=== PATIENT | male | born 1965 | race Caucasian/White ===

== ENCOUNTER 2016-04-18 14:07 | Inpatient (IN) | payer MEDICARE ==
[2016-04-18] MEDS ORDERED: IOPAMIDOL 300 (61%) 150 ML VIAL IV ONE (14:08)
[2016-04-18 14:47] LABS: URINE BILIRUBIN 2+ (NEGATIVE); URINE BLOOD NEGATIVE (NEGATIVE); URINE GLUCOSE (UA) NEGATIVE (NEGATIVE); URINE LEUKOCYTE ESTERASE TRACE (NEGATIVE); URINE PROTEIN 1+ (NEGATIVE); URINE UROBILINOGEN 12 mg/dL (0-1 mg/dl)
[2016-04-18 14:53] LABS: URINE APPEARANCE HAZY; URINE COLOR BROWN
[2016-04-18 15:01] LABS: URINE BACTERIA FEW; URINE EPITHELIAL CELLS 0-2 /hpf; URINE MUCUS 3+; URINE RBC 0 /hpf; URINE WBC 0-1 /hpf
[2016-04-18 15:03] LABS: URINE NITRITE POSITIVE (NEGATIVE)
[2016-04-18] MEDS ORDERED: SODIUM CHLORIDE 0.9% 1,000 ML ONE ×2 (17:58→22:20)
[2016-04-18] MEDS ORDERED: ONDANSETRON 4 MG/2ML 2 ML VIAL ONE (17:58)
[2016-04-18] MEDS ORDERED: KETOROLAC TROMETHAMINE 30 MG/ML 1 ML VIAL ONE (17:59)
[2016-04-18 18:26] LABS: ABSOLUTE NEUTROPHIL COUNT 7.2 K/mm3 (1.8-7.7); BASO # 0.1 K/mm3 (0.0-0.2); BASO % 0.5 % (0.2-1.0); EOS # 0.1 (0.0-0.5); EOS % 1.2 % (0.9-2.9); HEMATOCRIT 47.2 % (32.0-52.0); HEMOGLOBIN 16.3 gm/l (14.0-18.0); IMM NEUT # 0.2 K/mm3 (0-0.2); IMM NEUT% 1.6 % (0-1); LYMPH # 1.4 (1.0-4.8); MEAN CELL VOLUME 97.1 fl (80.0-94.0); MEAN CORPUSCULAR HEMOGLOBIN 33.5 pg (27.0-31.0); MEAN CORPUSCULAR HGB CONC 34.5 g/dl (33.0-37.0); MEAN PLATELET VOLUME 9.7 fl (7.4-10.4); MONO % 18.4 % (4-12); NEUT % 65.3 % (43-75); PLATELET COUNT 138 K/mm3 (130-400); RED CELL DISTRIBUTION WIDTH 12.8 % (11.5-14.5)
[2016-04-18 18:34] LABS: ALB/GLOB RATIO 0.9 (>1.0); ALBUMIN 3.4 gm/dL (3.5-5.7); ALT/SGPT 65 U/L (7-52); BLOOD UREA NITROGEN 12 mg/dL (7-25); BUN/CREATININE RATIO 17 (6-20); CALCIUM 8.7 mg/dL (8.6-10.3); GLOMERULAR FILTRATION RATE 119 mL/min (60-93); LIPASE 50 U/L (11-82)
--- NOTE | 2016-04-18 19:34 | CT ---
Exam Type: ABD/PELVIS W/ CON Date and Time: 04/18/2016 6:09 PM Clinical information: Right-sided abdominal pain. Comparison: Abdomen ultrasound dated 04/12/2016. Procedure: Imaging device: [employer] Aquilion [address] scanner 1 mm axial images were obtained through the abdomen and pelvis. Stacked reconstructed 3, 4 and 5 mm images were photographed in the axial coronal and sagittal planes. No oral contrast was utilized for this examination. 125 ml of Isovue-300 was injected intravenously. Exam: with intravenous contrast. FINDINGS: Lung bases: Scans through the lung bases demonstrate linear bibasilar atelectasis or scarring. Liver: The liver appears to be somewhat heterogeneous with the suggestion of numerous low-attenuation foci. A focal mass is not visualized. This may reflect a process such as hepatitis or underlying cirrhosis though a diffuse infiltrating process cannot be excluded. Spleen: Spleen is enlarged with the suggestion of perisplenic and periesophageal varices. Gallbladder: The gallbladder is moderately distended. There appears to be adjacent inflammatory stranding and thickening of the gallbladder wall though this was not identified on the prior ultrasound. On image 36, there is a calcific focus which appears to project at the gallbladder neck which may reflect a small calcified gallstone. Pancreas: Normal without enlargement or evidence of adjacent inflammatory changes. Adrenal glands: Normal without enlargement or evidence of adjacent inflammatory changes. Abdominal aorta: The aorta is of normal caliber and appears to be without significant atherosclerotic disease. Kidneys: There is a small low-attenuation focus within the left kidney appearing to reflect a small cyst. No evidence of hydronephrosis is visualized. Bowel structures: Extensive colonic diverticulosis is present. The hepatic flexure extends adjacent to the gallbladder in the region of inflammatory stranding, though this appears to be centered at the gallbladder, and not the colon. Mild likely secondary thickening of the colonic wall is seen within this region. There is no evidence of obstruction visualized. Appendix: The appendix is well-visualized and appears to be of normal caliber. No periappendiceal inflammatory changes or CT findings of appendicitis are currently observed. Bladder: The bladder is of normal contour. No wall thickening or significant distention is observed. Hernia: A fat filled left inguinal hernia is visualized. There is also a small suggested ventral hernia eccentric to the right above the level of the umbilicus. Adenopathy: No significant enlarged adenopathy is visualized. Osseous structures: There is a deformity of the right iliac wing which may be the site of prior bone graft harvest or a traumatic deformity. Pelvic structures: There is prominence of the venous vascular structures within the deep pelvis and including along the margin of the rectum, best seen on axial image #112. IMPRESSION: 1. Distention of the gallbladder with suggested wall thickening and inflammatory stranding within the mesentery of the right upper quadrant, appearing to be centered at the gallbladder. Though no gallstones were evident on prior ultrasound exam, there is a small calcific focus seen posteriorly within the gallbladder neck which may reflect a small calcified gallstone. The possibility of acute or chronic cholecystitis is raised. 2. Splenomegaly with perisplenic and periesophageal varices. 3. A heterogeneous appearance of the liver with numerous very small suggested low-attenuation foci which may reflect an underlying inflammatory or infectious process such as hepatitis or cirrhosis. A diffuse infiltrative process cannot be excluded however. 4. Diffuse colonic diverticulosis with focal thickening of the hepatic flexure likely secondary colitis due to the inflammatory process within the right upper quadrant adjacent to the gallbladder. 5. A small amount of pelvic free fluid. 6. A traumatic or postsurgical deformity of the right iliac wing. 7. A small right eccentric anterior abdominal wall ventral hernia located cephalad to the umbilicus. 8. A probable small left renal cyst. 9. A small fat filled left inguinal hernia. 10. Prominent deep pelvic vasculature including along the right lateral wall of the rectum.
[2016-04-18] MEDS ORDERED: MORPHINE SULFATE 4 MG/ML SYRINGE ONE (20:11)
[2016-04-18] MEDS ORDERED: PIPERACILLIN-TAZO PREMIX BAG 50 ML IV ONE (20:11)
[2016-04-18] MEDS ORDERED: TETANUS,DIPHTHERIA TOXOID SYRINGE IM V ONE (20:11)
[2016-04-18] MEDS ORDERED: ONDANSETRON 4 MG/2ML 2 ML VIAL IV PRN (20:39)
[2016-04-18] MEDS ORDERED: DIPHENHYDRAMINE HCL 50 MG/1 ML VIAL IV PRN (20:39)
[2016-04-18 21:13] LABS: BAND 15 % (0-10); NEUTROPHILS 58 % (43-75); TOTAL CELLS COUNTED 100
[2016-04-18 21:14] LABS: BASOPHIL 0 % (0-1); EOSINOPHIL 2 % (1-3); LYMPHOCYTE 15 % (15-45); MONOCYTE 10 % (4-12)
[2016-04-18 21:18] LABS: PLATELET ESTIMATE NORMAL (NORMAL)
[2016-04-18] MEDS ORDERED: PUMP TUBING ONE (22:20)
[2016-04-18] MEDS ORDERED: CALCIUM CARBONATE 500 MG TAB.CHEW PO ONE (22:49)
[2016-04-19 00:17] VITALS: BMI 30.6
[2016-04-19] MEDS: SODIUM CHLORIDE 0.9% 1,000 ML IV SCH ×2 (02:34→06:40)
[2016-04-19] MEDS: PIPERACILLIN-TAZO PREMIX BAG 3.375 G in Premix (D5W) 50 ml 1 EACH IV SCH ×4 (02:35→19:48)
[2016-04-19] MEDS: MORPHINE SULFATE 2 MG/ML SYRINGE IV PRN ×8 (02:42→22:47)
--- NOTE | 2016-04-19 06:08 | HP ---
MOJGAN RAMIREZO DATE OF ADMISSION: April 18, 2016 CHIEF COMPLAINT: Right upper quadrant pain. HISTORY OF PRESENT ILLNESS: Mr. Solares is a 51-year-old man who began having epigastric and right upper quadrant pain on Berta Mary, six days ago. Since then he has had pain basically on a daily basis. He was initially seen in the emergency room here on April 12, 2016 and an ultrasound was done, but this did not demonstrate stones or any stigmata of acute cholecystitis. He was sent home and since then has barely been able to eat. When he does eat, pain gets a little bit worse. Mild nausea but no vomiting. No history of gallstones before now. No history of pancreatitis or jaundice. Because the pain persisted, he presented again to the emergency department today and this time a CT scan was done which showed evidence of acute cholecystitis and the gallstone. General surgery was consulted. PAST MEDICAL HISTORY: Prior traumatic brain injury and a variety of orthopedic injuries from that. PAST SURGICAL HISTORY: 1. Umbilical hernia repair with mesh done in [place]. 2. Femur surgery with subsequent mian removal. 3. No other abdominal surgery. MEDICATIONS: None. ALLERGIES TO MEDICATIONS: NONE. SOCIAL HISTORY: Frequent alcohol use basically on a daily basis. No tobacco. FAMILY HISTORY: Is noncontributory. REVIEW OF SYSTEMS: The ten-point review of systems is noncontributory. He has not had any variceal bleeding and is unaware of any liver disease that he might have. PHYSICAL EXAM: VITAL SIGNS: Temperature 97.9, heart rate 84, blood pressure 133/87, respiratory rate 14. HEENT: No icterus. NECK: No masses. HEART: Regular. LUNGS: Clear. ABDOMEN: Mildly tender in the right upper quadrant. EXTREMITIES: Unremarkable. NEUROLOGIC: Appears to be nonfocal. It is unclear if he has some cognitive deficits from his head injury. GENITOURINARY: Exam is deferred. RECTAL: Exam is deferred. LABORATORIES: WBC is 11, hematocrit 47, platelets 138. Ethanol was negative. Lipase 50, amylase 22. Electrolytes were remarkable only for a sodium of 132. Liver function studies showed a total bilirubin 3.4, AST 123, ALT 65, alkaline phosphatase 149. DIAGNOSTIC IMAGING: CT scan of the abdomen and pelvis shows gallbladder wall thickening with a small calcified gallstone. There is a small ventral hernia just superior to the prior umbilical hernia. There are varices. ASSESSMENT: Acute cholecystitis and elevated total bilirubin. PLAN: Mr. Solares will be admitted to the hospital. He can have a clear liquid diet tonight but nothing by mouth after midnight for possible surgery tomorrow. He has already been started on Zosyn, intravenous fluids, and pain control. Dr. Garcia takes back over in the morning and will assume ongoing care. This would presumably involve cholecystectomy. I told him about the general nature of his condition and the need for cholecystectomy. It would be somewhat more difficult secondary to the acute nature of his gallbladder disease, varices, possible cirrhosis, and the ventral hernia. This may alter the approach. He understands that there is a risk of conversion to open procedure. The varices and possible cirrhosis raise the possibility that the total bilirubin, which was 3.1 a week ago and is now 3.4, might be not entirely due to choledocholithiasis. Although, this is certainly a possibility. As this is not an urgent, [id number] case, I will leave the timing up to Dr. Garcia. Repeat labs and a preoperative electrocardiogram have been ordered for in the morning.
[2016-04-19 06:14] LABS: HEMATOCRIT 43.1 % (32.0-52.0); HEMOGLOBIN 15.2 gm/l (14.0-18.0); MEAN CELL VOLUME 96.2 fl (80.0-94.0); MEAN CORPUSCULAR HEMOGLOBIN 33.9 pg (27.0-31.0); MEAN CORPUSCULAR HGB CONC 35.3 g/dl (33.0-37.0); RED CELL DISTRIBUTION WIDTH 12.7 % (11.5-14.5)
[2016-04-19 06:27] LABS: INR 1.5; PROTHROMBIN TIME 16.1 SECONDS (9.3-11.4)
[2016-04-19 06:49] LABS: ALB/GLOB RATIO 0.8 (>1.0); ALBUMIN 2.8 gm/dL (3.5-5.7); CALCIUM 7.9 mg/dL (8.6-10.3)
[2016-04-19] MEDS ORDERED: MIDAZOLAM HCL 5 MG/5 ML VIAL ONE (11:29)
[2016-04-19] MEDS ORDERED: SUCCINYLCHOLINE CHL 20 MG/ML DOSE ONE (11:29)
[2016-04-19] MEDS ORDERED: FENTANYL 5 ML ONE ×2 (11:29→13:01)
[2016-04-19] MEDS ORDERED: PROPOFOL 20 ML IV ONE ×2 (11:29→12:56)
[2016-04-19] MEDS ORDERED: ONDANSETRON 4 MG/2ML 2 ML VIAL ONE (11:29)
[2016-04-19] MEDS ORDERED: LIDOCAINE 2% (MULTI DOSE) 10 ML VIAL ONE (11:29)
[2016-04-19] MEDS ORDERED: CEFOTAXIME SODIUM 1,000 MG VIAL ONE (12:00)
[2016-04-19] MEDS ORDERED: IOPAMIDOL 300 (61%) 30 ML SDV ONE (12:01)
[2016-04-19] MEDS ORDERED: SODIUM CHLORIDE 0.9% FLUSH 0 ML ONE ×2 (12:01→17:55)
[2016-04-19] MEDS ORDERED: BUPIVACAINE 0.5% W/EPI SDV 30 ML VIAL ONE (12:01)
[2016-04-19] MEDS ORDERED: SODIUM CHLORIDE 0.9% 50 ML ONE (12:11)
[2016-04-19] MEDS ORDERED: ONDANSETRON 4 MG/2ML 2 ML VIAL IV PRN ×2 (13:09→15:48)
[2016-04-19] MEDS ORDERED: HYDROMORPHONE HCL 1 MG/ML SYRINGE IV PRN (13:09)
[2016-04-19] MEDS ORDERED: PROMETHAZINE HCL 25 MG/ML VIAL IM PRN (13:09)
[2016-04-19] MEDS ORDERED: FENTANYL 100 MCG/2 ML VIAL IV PRN (13:09)
[2016-04-19] MEDS ORDERED: LACTATED RINGERS 1,000 ML IV SCH (13:15)
[2016-04-19] MEDS ORDERED: FENTANYL 100 MCG/2 ML VIAL ONE (14:46)
[2016-04-19] MEDS ORDERED: BLISTEX LIPSTICK 1 EACH TP PRN (15:48)
[2016-04-19] MEDS ORDERED: MENTHOL/CETYLPYRD 1 EACH LOZENGE PO PRN (15:48)
--- NOTE | 2016-04-19 15:49 | OP ---
NATHANIEL RAMIREZ [id number] DATE OF OPERATION: April 19, 2016 PREOPERATIVE DIAGNOSES: 1. Acute cholecystitis with cholelithiasis. 2. Probable cirrhosis. 3. Recurrent ventral hernia. POSTOPERATIVE DIAGNOSIS: 1. Hepatic cirrhosis. 2. Acute cholecystitis with cholelithiasis. 3. Recurrent ventral hernia. PROCEDURES: 1. LAPAROSCOPIC CHOLECYSTOSTOMY TUBE PLACEMENT. 2. LIVER BIOPSY. 3. PRIMARY RECURRENT VENTRAL HERNIA REPAIR. SURGEON: Johnny Garcia M.D. ANESTHESIA: General endotracheal by Leeann Campbell C.R.N.A. INDICATIONS: A 51-year-old male who has had right upper quadrant abdominal pain. He has a CAT scan showing acute cholecystitis with cholelithiasis. He appears to have changes of cirrhosis. He has an elevated bilirubin and prothrombin time with no biliary dilation seen. He has evidence of varices. He has a recurrent ventral hernia above an area of prior repair with mesh DESCRIPTION: With informed consent he was taken to the operating room where he was laid supine on the operating room table. General endotracheal anesthetic was administered. The abdomen was prepped and draped in the usual fashion. Local anesthetic was administered in the midline above the umbilicus. An incision was made. We dissected down to a hernia. The hernia sac was excised at the level of the fascia with electrocautery. Digitally I could feel through the fascial defect, and it was about the size of my index finger. I could feel curled up mesh inferiorly. Sutures of Surgilon were placed on the edges and a Marcos port was placed. A pneumoperitoneum was created. Local anesthetic was administered in the mid epigastrium and along the right lateral abdominal wall. Incisions were made, 5 mm ports were placed. It was clear that there was an inflammatory process going on in the right upper quadrant. There were diffuse changes of chronic liver disease. The liver edge was blunted. I started to pull away omentum from the top of the gallbladder. There were large varices within this. Despite gentle dissection, we started to have oozing with very minimal manipulation. I was able to see a significant portion of the gallbladder which was tense, edematous, erythematous. It was clearly not going to be amenable to a laparoscopic procedure. I considered options of opening versus cholecystostomy tube. In the end I felt he would be best served with cooling this down significantly before attempting cholecystectomy. An aspirating needle was used to aspirate some thick purulent type material from the gallbladder. It did not look like bile. I did send some of this for culture. I made an incision just below the rib edge laterally on the right. I dissected down through the abdominal wall with a hemostat and then brought #10 Greek Orr catheter into the abdominal cavity into that area. this appeared to be the closest to the gallbladder. I made an incision in the fundus of the gallbladder using electrocautery. The catheter was placed into the gallbladder and then the balloon inflated. It appeared that we were going to have a short run of catheter intraabdominally with fairly straight catheter orientation. Using laparoscopic luciana, I sharply excised a portion of the liver just to the left of the gallbladder but right of the falciform ligament. With the specimen excised and sent off to pathology, the liver biopsy site was vigorously cauterized with adequate hemostasis. I chose to put a piece of Surgicel over the liver biopsy site as well as around the catheter at the top of the gallbladder. We had no signs of active bleeding, and no obvious vessel or variceal bleeding. Limited irrigation was utilized and then suctioned. The pneumoperitoneum was evacuated. The recurrent hernia defect was closed in a transverse fashion with multiple sutures of #0 Surgilon some of which incorporated part of the old mesh into this repair. Because of the acute infected nature, I did not want to place any new mesh, and I thought that the risk of actually getting the present mesh infected was small but acceptable. All skin wounds were irrigated. Some #3-0 Vicryl was placed in the subcutaneous tissues in the midline. All wounds were closed with subcuticular #4-0 Monocryl. Mastisol and SteriStrips were placed. Drain was sutured to the skin with #2-0 nylon and placed to dependent drainage. He tolerated the procedure and was taken to the recovery room in stable condition. Note was made that needle, instrument and lap counts were reported as correct at time of closure.
[2016-04-19] MEDS ORDERED: MORPHINE SULFATE 4 MG/ML SYRINGE IV PRN (15:56)
[2016-04-19] MEDS ORDERED: MORPHINE SULFATE 10 MG/ML SYRINGE IV PRN (15:56)
[2016-04-19] MEDS: LACTATED RINGERS 1,000 ML IV SCH (16:02)
[2016-04-19] MEDS ORDERED: IV START KIT ONE (16:09)
[2016-04-19] MEDS ORDERED: SODIUM CHLORIDE 0.9% FLUSH 10 ML ONE (16:09)
[2016-04-19] MEDS ORDERED: SURGICEL 3X4 1 EACH PACKET ONE (16:22)
--- NOTE | 2016-04-19 17:05 | RAD ---
CHEST-AP BEDSIDE HISTORY: Decreased O2 saturation. Dyspnea. COMPARISONS: None. FINDINGS: A single view of the chest was performed demonstrating a low inspiratory volume. The heart size appears to be within expected. There is increased asymmetric right perihilar and suprahilar density which may reflect atelectasis, infiltrate or evidence of aspiration. There is asymmetric elevation of the right hemidiaphragm. No effusion or pneumothorax is observed. The hilar and mediastinal structures are otherwise intact. IMPRESSION: 1. A lower respiratory volume with asymmetric elevation of the right hemidiaphragm. 2. Suggested increased right perihilar and suprahilar densities which may reflect atelectasis, infiltrate or findings of aspiration. Follow-up to resolution is recommended.
[2016-04-19 17:11] LABS: HEMATOCRIT 47.4 % (32.0-52.0); HEMOGLOBIN 16.4 gm/l (14.0-18.0); MEAN CELL VOLUME 96.9 fl (80.0-94.0); MEAN CORPUSCULAR HEMOGLOBIN 33.5 pg (27.0-31.0); MEAN CORPUSCULAR HGB CONC 34.6 g/dl (33.0-37.0); RED CELL DISTRIBUTION WIDTH 12.8 % (11.5-14.5)
[2016-04-19] MEDS ORDERED: ALBUTEROL NEB 2.5 MG/3 ML VIAL.NEB NEB PRN (17:33)
[2016-04-19 17:36] LABS: ALB/GLOB RATIO 0.8 (>1.0); CALCIUM 8.2 mg/dL (8.6-10.3)
[2016-04-19 17:38] LABS: TROPONIN I 0.02 ng/ml (0.0-0.06)
[2016-04-19 17:39] LABS: INR 1.63; PROTHROMBIN TIME 17.5 SECONDS (9.3-11.4)
[2016-04-19 17:41] LABS: CKMB ISOENZYME 1.1 ng/ml (0.6-6.3)
[2016-04-19 17:58] LABS: ARTERIAL BLOOD GAS PCO2 41.1 mmHg (35.0-45.0); ARTERIAL BLOOD GAS PO2 90.2 mmHg (80.0-90.0); ARTERIAL BLOOD GAS pH 7.412 (7.350-7.450)
[2016-04-19 17:59] LABS: ARTERIAL BLOOD GAS BASE EXCESS 0.9 mmol/L (-2.0-2.0); ARTERIAL BLOOD GAS HCO3 25.6 mmol/L (22.0-28.0)
[2016-04-19] MEDS: PANTOPRAZOLE SODIUM 40 MG VIAL IV SCH (18:18)
[2016-04-19] MEDS: OXYCODONE HCL 5 MG TABLET PO PRN ×2 (19:25→23:45)
--- NOTE | 2016-04-19 19:45 | CONS ---
NATHANIEL SANTANA [id number] : 06/11/1964 DATE OF ADMISSION: April 18, 2016 DATE OF CONSULTATION: April 19, 2016 CONSULTATION REQUESTED BY: Johnny Garcia M.D. REASON FOR CONSULTATION: Postoperative respiratory distress. PRIMARY CARE PROVIDER: None. CHIEF COMPLAINT: Abdominal pain. HISTORY OF PRESENT ILLNESS: Mr. Santana is a 51-year-old with alcohol dependence and history of traumatic brain injury. He had been seen in the [facility] Emergency Room on April 12 and again on April 18 with complaints of abdominal pain. On the second visit, CT scan did show cholangitis and varices. He was admitted to [facility] by Dr. Kelly and care passed off to Dr. Garcia on the morning of April 19, 2016. On the afternoon of April 19, 2016, Dr. Garcia took the patient to surgery for attempted laparoscopic cholecystectomy. He had extensive varices and oozing of blood noted and a cholecystostomy tube was placed but the gallbladder was not removed. Liver biopsy was obtained as well and a recurrent ventral hernia was repaired. Surgery was done under general endotracheal anesthesia and the shoe planner did comment that the patient was difficulty to ventilate. Following surgery, he was revived, taken to post anesthesia recovery and then to the medical/surgical floor in stable condition. He was on oxygen by nonrebreather at 10 liters per minute per the postoperative protocol. He then had an episode of tachypnea with a respiratory rate up to 30 and a drop in his oxygen saturation. He coughed and brought up some blood and saturations improved to the mid 90s, but he continued to have abnormal chest exam and concern for respiratory compromise at which point, medical consultation was requested. REVIEW OF SYSTEMS: No head and neck symptoms. No cardiac symptoms. He does report dyspnea and cough. He reports abdominal pain, no nausea. No musculoskeletal symptoms. PAST MEDICAL HISTORY: 1. Traumatic brain injury with some difficult behavioral issues. 2. Gastroesophageal reflux disease. 3. Alcohol dependence although family states he has not consumed alcohol for the last week. PAST SURGICAL HISTORY: 1. Umbilical hernia repair with mesh done at [place] about three or four years ago. 2. Femur surgery for compound fracture and subsequent mian removal. 3. Laparoscopic hernia repair and cholecystostomy tube placement today. MEDICATIONS: Ibuprofen. ALLERGIES: 1. Family reports he has had a rash reaction to LATEX. 2. He had hypotension from FENTANYL with his surgery today. HABITS: He drinks alcohol a fifth or more per day. Family states none for the last week and that he did not have withdrawal symptoms. He formerly chewed tobacco but quit that 27 years ago. SOCIAL HISTORY: He is . Lives with his in [place]. He is on Social Security disability secondary to his traumatic brain injury. FAMILY HISTORY: There is a history of coronary artery disease reported by his sister. PHYSICAL EXAMINATION: GENERAL: This is a jaundiced and somewhat uncooperative 51-year-old. VITAL SIGNS: Temperature is 99,1 degrees Fahrenheit axillary, pulse 98, blood pressure 142/95, respiratory rate 22, oxygen saturation 95% on nonrebreather mask with ten liters of oxygen flowing. HEENT: Oropharynx is moist. NECK: Supple. LUNGS: He has gurgling upper airway noise and poor air exchange, slight crackles at the bases right greater than left. No wheezes. HEART: Regular, no murmur. ABDOMEN: Postoperative with a drain in the right upper quadrant. Bowel sounds are active. EXTREMITIES: Poor pulses. No edema. NEUROLOGIC: Nonfocal. LABORATORY STUDIES: White blood cell count 14.5, hemoglobin and hematocrit 16.4 and 47.4, platelets 135. INR is elevated at 1.63. Arterial blood gas pH 7.41, PCO2 41.1, PO2 90.2. Chemistry, sodium 133, potassium 3.7, chloride 99, CO2 26, BUN 10, creatinine 0.5, glucose 109, bilirubin is elevated at 3.3, AST 119, ALT 63, alkaline phosphatase 146, albumin low at 3.0. CPK 72, MB fraction 1.1, troponin I 0.02. IMAGING: Chest x-ray, poor inspiration with elevation of the right hemidiaphragm. ELECTROCARDIOGRAM: Sinus rhythm with left axis deviation and incomplete right bundle branch block. No significant change from preoperative electrocardiogram. ASSESSMENT: Mr. Felipe is a 51-year-old status post laparoscopic procedure with placement of cholecystostomy and ventral hernia repair. He has acute respiratory failure/distress with normal blood gas at this time. No evidence of acute coronary syndrome, but he does have acute versus chronic hepatitis possibly related to alcoholism or other infiltrative process of the liver and underlying traumatic brain injury and gastroesophageal reflux disease. RECOMMENDATIONS: 1. Transfer to intermediate care to facilitate closer observation. 2. Provide respiratory therapy intervention with nebulizer treatments and gentle orotracheal suction. If the secretions from his upper airway can be removed, that may be very helpful. 3. Encourage incentive spirometry, deep breathing and coughing. 4. Repeat chest x-ray in the morning. 5. Continue treatment for cholangitis as per Dr. Garcia with Zosyn and drainage. 6. Intravenous pantoprazole for history of gastroesophageal reflux disease. 7. Daily banana bag. 8. CIWA protocol and as needed lorazepam for withdrawal symptoms. Thank you, Dr. Garcia, for this consultation. The hospitalist service will follow.
[2016-04-19] MEDS: ALBUTEROL/IPRATROPIUM 2.5/0.5 MG 3 ML/EACH DOSE NEB SCH (20:42)
[2016-04-19] MEDS: MULTIVITAMINS 10 ML, FOLIC ACID 2 MG, MAGNESIUM SULFATE 1 G/2 ML 2 G, THIAMINE HCL 100 ... IV SCH ×5 (20:43)
[2016-04-20] MEDS: PIPERACILLIN-TAZO PREMIX BAG 3.375 G in Premix (D5W) 50 ml 1 EACH IV SCH ×4 (01:32→19:50)
[2016-04-20] MEDS: MORPHINE SULFATE 2 MG/ML SYRINGE IV PRN ×4 (04:08→23:49)
[2016-04-20] MEDS: OXYCODONE HCL 5 MG TABLET PO PRN ×7 (04:57→23:44)
[2016-04-20] MEDS: LACTATED RINGERS 1,000 ML IV SCH ×2 (05:15→19:08)
[2016-04-20] MEDS: PANTOPRAZOLE SODIUM 40 MG VIAL IV SCH ×2 (05:34→17:05)
[2016-04-20 06:06] LABS: HEMATOCRIT 46.5 % (32.0-52.0); HEMOGLOBIN 15.7 gm/l (14.0-18.0); MEAN CELL VOLUME 98.9 fl (80.0-94.0); MEAN CORPUSCULAR HEMOGLOBIN 33.4 pg (27.0-31.0); MEAN CORPUSCULAR HGB CONC 33.8 g/dl (33.0-37.0); RED CELL DISTRIBUTION WIDTH 13.1 % (11.5-14.5)
[2016-04-20 06:18] LABS: INR 1.58
--- NOTE | 2016-04-20 06:18 | RAD ---
CHEST-AP BEDSIDE HISTORY: Respiratory failure. COMPARISONS: 04/19/2016. FINDINGS: A single view of the chest was performed and was limited due to exclusion of the left costophrenic sulcus. There is persistent asymmetric elevation of the right hemidiaphragm. There is evidence of persistent right-sided perihilar and suprahilar opacities similar to that seen on prior examination. No definite effusion or pneumothorax is visualized. The hilar and mediastinal structures are otherwise appropriate. IMPRESSION: 1. Persistent asymmetric elevation the right hemidiaphragm with right perihilar and suprahilar opacities which may reflect atelectasis or infiltrate. Continued follow-up to resolution is recommended.
[2016-04-20 06:21] LABS: ALB/GLOB RATIO 0.9 (>1.0); ALBUMIN 2.9 gm/dL (3.5-5.7); CALCIUM 7.8 mg/dL (8.6-10.3)
[2016-04-20] MEDS: ALBUTEROL/IPRATROPIUM 2.5/0.5 MG 3 ML/EACH DOSE NEB SCH ×2 (08:29→12:49)
--- NOTE | 2016-04-20 10:18 | PDOC43 ---
- Subjective Chief Complaint: Respiratory distress post surgery Coughed up some bloody sputum this a.m. and does report dyspnea. - Objective Vital Signs Temperature 97.8 F 04/20/16 07:31 Pulse Rate 84 04/20/16 08:34 Respiratory Rate 12 04/20/16 08:34 Blood Pressure 130/87 04/20/16 07:31 O2 Saturation by Pulse Oximetry 93 04/20/16 08:34 Oxygen Delivery Method Nasal Cannula Oxygen Flow Rate 3 Intake and Output 04/19/16 04/20/16 04/21/16 06:59 06:59 06:59 Intake Total 3076 300 Output Total 1260 250 Balance 1816 50 Tubes/Drains Output: Tubes and Drains Output ALVIN #1 60 General: Alert, Oriented x3, Cooperative, Mild Distress HEENT: Mucous membr. moist/pink Lungs: Other (course BS on right) Cardiovascular: Regular Rate and Rhythm Abdomen: Firm, Tenderness, Normal Bowel Sounds Extremities: Normal Pulses, No Edema Skin: Normal Color Psych/Mental Status: Agitated (mild agitation, TBI personality vs. EtOH w/d) Laboratory 04/20/16 05:30 04/20/16 05:30 04/20/16 04/19/16 04/19/16 05:30 17:37 17:17 MCV 98.9 H MCH 33.4 H PT 17.0 H 17.5 H pO2 90.2 H Estimated GFR 143 H Calcium 7.8 L Total Bilirubin 3.3 H AST 113 H ALT 65 H Alkaline Phosphatase 152 H Total Protein 6.2 L Albumin 2.9 L Globulin Albumin/Globulin Ratio 0.9 L 04/19/16 16:55 MCV 96.9 H MCH 33.5 H PT pO2 Estimated GFR 176 H Calcium 8.2 L Total Bilirubin 3.3 H AST 119 H ALT 63 H Alkaline Phosphatase 146 H Total Protein Albumin 3.0 L Globulin 3.7 H Albumin/Globulin Ratio 0.8 L Current Medications: Current meds reviewed in EMR. - Problems: Assessment/Plan (1) Cholangitis Status: Acute Assessment/Plan: Cholecystostomy tube placed 04/19, management per Dr. Garcia. (2) Hepatitis Status: Acute Assessment/Plan: Appears to have alcoholic cirrhosis with varaces and possible other acute/ chronic liver disease. INR elevated, liver enzymes and bilirubin elevated, albumin low. Liver biopsy result pending, viral hepatitis panel pending. (3) Respiratory distress following surgery Status: Acute Assessment/Plan: O2 requirement is less but in the setting of alcoholism and continued abnormal CXR ther is significant likelihood of aspiration pneumonia. Continue Zosyn and add Levofloxacin and clindamycin for presumed bacterial aspiration pneumonia. Continue nebs and pulmonary toilet. (4) Alcohol dependence Status: Chronic Assessment/Plan: Resulting in chronic liver disease. Family reports no EtOH intake for > one week, continue CIWA protocol. (5) GERD (gastroesophageal reflux disease) Qualifiers: Esophagitis presence: esophagitis presence not specified Qualifier Code : (K21.9) Gastro-esophageal reflux disease without esophagitis Status: Chronic Assessment/Plan: Continue pantoprazole. (6) Obesity (BMI 30.0-34.9) Status: Chronic Assessment/Plan: Complicates medical care for liver disease and pneumonia. (7) TBI (traumatic brain injury) Qualifiers: Encounter type: sequela Status: Chronic Assessment/Plan: Complicates social interaction and patient understanding of his conditions. VTE Prophylaxis: mechanical with IPC. Partially auto-anticoagulated from liver disease and may need more surgery.
--- NOTE | 2016-04-20 11:30 | PDOC43 ---
- Subjective Subjective: Reports Pain Tolerable, Denies Nausea - Objective Vital Signs Temperature 98.5 F 04/20/16 11:00 Pulse Rate 87 04/20/16 11:00 Respiratory Rate 18 04/20/16 11:16 Blood Pressure 145/81 04/20/16 11:00 O2 Saturation by Pulse Oximetry 98 04/20/16 11:00 Oxygen Delivery Method Nasal Cannula Oxygen Flow Rate 3 Laboratory 04/20/16 05:30 04/20/16 05:30 04/20/16 04/19/16 04/19/16 05:30 17:37 17:17 MCV 98.9 H MCH 33.4 H PT 17.0 H 17.5 H pO2 90.2 H Estimated GFR 143 H Calcium 7.8 L Total Bilirubin 3.3 H AST 113 H ALT 65 H Alkaline Phosphatase 152 H Total Protein 6.2 L Albumin 2.9 L Globulin Albumin/Globulin Ratio 0.9 L 04/19/16 16:55 MCV 96.9 H MCH 33.5 H PT pO2 Estimated GFR 176 H Calcium 8.2 L Total Bilirubin 3.3 H AST 119 H ALT 63 H Alkaline Phosphatase 146 H Total Protein Albumin 3.0 L Globulin 3.7 H Albumin/Globulin Ratio 0.8 L Active Medication Orders Category Date Time Status Albuterol Sulf Neb 2.5mg/3ml [Ventolin Inhalation Med 04/19/16 17:33 Active Solution (Dose)] 2.5 mg NEB Q2H PRN Albuterol/Ipratropium 2.5/0.5 [Duoneb] Med 04/19/16 20:00 Active 3 ml NEB 08,12,16,20 Clindamycin 600 mg Premix [Cleocin-D5w 600 mg/50 ml] Med 04/20/16 11:00 Active 600 mg Premix (D5W) 50 ml 1 each IV Q6H Lactated Ringers 1,000 ml Med 04/19/16 15:48 Active IV 75 mls/hr Levofloxacin 750 mg/D5w 150 ml [Levaquin IV 750 mg] 750 Med 04/20/16 11:30 Active mg Premix (D5W) 150 ml Bag 1 each IV Q24H Lip [place] [Blistex] Med 04/19/16 15:48 Active 1 each TP PRN PRN Lorazepam [Ativan] Med 04/19/16 18:12 Active 1 mg IV Q4H PRN Menthol/Cetylpyridinium [Cepacol] Med 04/19/16 15:48 Active 1 each PO PRN PRN Morphine Sulfate Med 04/19/16 15:48 Active 1 - 6 mg IV Q1H PRN Morphine Sulfate Med 04/19/16 15:56 Active 1 - 6 mg IV Q1H PRN Morphine Sulfate Med 04/19/16 15:56 Active 1 - 6 mg IV Q1H PRN Multivitamins [Mvi-12] 10 ml Med 04/19/16 18:30 Active Folic Acid 2 mg Magnesium Sulfate 1 G/2 ml [Magnesium Sulfate] 2 g Thiamine HCl 100 mg Sodium Chloride 0.9% 1,000 ml IV Q24H Oxycodone HCl [Roxicodone] Med 04/19/16 15:48 Active 5 - 10 mg PO Q4H PRN Pantoprazole Sodium [Protonix] Med 04/19/16 17:45 Active 40 mg IV Q12H Sodium Chloride 0.9% Flush [Normal Saline 10ml Flush] Med 04/19/16 15:48 Active 10 - 50 ml IV PRN PRN Intake and Output 04/19/16 04/20/16 04/21/16 06:59 06:59 06:59 Intake Total 3076 800 Output Total 1260 250 Balance 1816 550 Tubes and Drains Output ALVIN #1 60 General: Alert Abdomen: Soft Wound: Dressing Clean/Dry/Intact - Assessment/ Plan (1) Cholelithiasis and acute cholecystitis with obstruction Status: Acute Assessment/ Plan: Presumptive E-coli from the gallbladder. On Zosyn. OK to eat. (2) Respiratory distress following surgery Status: Acute Assessment/ Plan: Possible aspiration pneumonia on antibiotics per hospitalists. (3) Cirrhosis Status: Acute Assessment/ Plan: Liver biopsy and hepatitis studies pending. LFTs stable. (4) Alcohol dependence Status: Chronic Assessment/ Plan: [facility] protocol.
[2016-04-20] MEDS: CLINDAMYCIN 600 MG PREMIX 600 MG in Premix (D5W) 50 ml 1 EACH IV SCH ×3 (11:32→22:37)
[2016-04-20] MEDS: LEVOFLOXACIN 750 MG/D5W 150 ML 750 MG in Premix (D5W) 150 ml Bag 1 EACH IV SCH (11:58)
[2016-04-20] MEDS: MULTIVITAMINS 10 ML, FOLIC ACID 2 MG, MAGNESIUM SULFATE 1 G/2 ML 2 G, THIAMINE HCL 100 ... IV SCH ×5 (19:50)
[2016-04-21] MEDS: PIPERACILLIN-TAZO PREMIX BAG 3.375 G in Premix (D5W) 50 ml 1 EACH IV SCH ×4 (01:18→20:09)
[2016-04-21] MEDS: CLINDAMYCIN 600 MG PREMIX 600 MG in Premix (D5W) 50 ml 1 EACH IV SCH ×4 (04:22→22:52)
[2016-04-21] MEDS: PANTOPRAZOLE SODIUM 40 MG VIAL IV SCH ×2 (05:00→17:14)
[2016-04-21 05:25] LABS: ABSOLUTE NEUTROPHIL COUNT 11.9 K/mm3 (1.8-7.7); BASO # 0.1 K/mm3 (0.0-0.2); BASO % 0.5 % (0.2-1.0); EOS # 0.4 (0.0-0.5); EOS % 2.4 % (0.9-2.9); HEMATOCRIT 44.2 % (32.0-52.0); HEMOGLOBIN 14.8 gm/l (14.0-18.0); IMM NEUT # 0.2 K/mm3 (0-0.2); IMM NEUT% 1.2 % (0-1); LYMPH # 1.8 (1.0-4.8); LYMPH % 11.6 % (15-45); MEAN CORPUSCULAR HEMOGLOBIN 33.5 pg (27.0-31.0); MEAN CORPUSCULAR HGB CONC 33.5 g/dl (33.0-37.0); MEAN PLATELET VOLUME 9.2 fl (7.4-10.4); MONO # 1.3 (0.0-0.8); MONO % 8.2 % (4-12); NEUT % 76.1 % (43-75); PLATELET COUNT 142 K/mm3 (130-400)
[2016-04-21] MEDS: LACTATED RINGERS 1,000 ML IV SCH ×2 (05:25→08:23)
[2016-04-21 05:38] LABS: INR 1.55; PROTHROMBIN TIME 16.7 SECONDS (9.3-11.4)
[2016-04-21 05:50] LABS: ALB/GLOB RATIO 0.8 (>1.0); ALBUMIN 2.6 gm/dL (3.5-5.7); CALCIUM 7.9 mg/dL (8.6-10.3)
[2016-04-21] MEDS: OXYCODONE HCL 5 MG TABLET PO PRN ×4 (07:13→20:09)
[2016-04-21] MEDS: LORAZEPAM 2 MG/ML 1ML SDV IV PRN ×3 (07:38→20:43)
[2016-04-21 11:52] LABS: HEP B CORE AB, IGM Non React (Non React); HEPATITIS B SURFACE AG Non React (Non React); HEPATITIS C ANTIBODY Non React (Non React)
[2016-04-21] MEDS: LEVOFLOXACIN 750 MG/D5W 150 ML 750 MG in Premix (D5W) 150 ml Bag 1 EACH IV SCH (11:59)
--- NOTE | 2016-04-21 13:49 | PDOC43 ---
- Subjective Subjective: Reports Flatus, Reports Pain Tolerable, Denies Bowel Movement, Denies Nausea - Objective Vital Signs Temperature 97.8 F 04/21/16 06:56 Pulse Rate 88 04/21/16 06:56 Respiratory Rate 16 04/21/16 13:19 Blood Pressure 125/86 04/21/16 11:00 O2 Saturation by Pulse Oximetry 95 04/21/16 11:00 Oxygen Delivery Method Nasal Cannula Oxygen Flow Rate 1 Laboratory 04/21/16 05:10 04/21/16 05:10 04/21/16 05:10 RBC 4.42 L MCV 100.0 H MCH 33.5 H PT 16.7 H Anion Gap 7 L Estimated GFR 119 H Calcium 7.9 L Total Bilirubin 2.6 H AST 104 H ALT 53 H Alkaline Phosphatase 134 H Total Protein 6.0 L Albumin 2.6 L Albumin/Globulin Ratio 0.8 L % Immature Granulocyt 1.2 H Active Medication Orders Category Date Time Status Albuterol Sulf Neb 2.5mg/3ml [Ventolin Inhalation Med 04/19/16 17:33 Active Solution (Dose)] 2.5 mg NEB Q2H PRN Clindamycin 600 mg Premix [Cleocin-D5w 600 mg/50 ml] Med 04/20/16 11:00 Active 600 mg Premix (D5W) 50 ml 1 each IV Q6H Levofloxacin 750 mg/D5w 150 ml [Levaquin IV 750 mg] 750 Med 04/20/16 11:30 Active mg Premix (D5W) 150 ml Bag 1 each IV Q24H Lip [place] [Blistex] Med 04/19/16 15:48 Active 1 each TP PRN PRN Lorazepam [Ativan] Med 04/19/16 18:12 Active 1 mg IV Q4H PRN Menthol/Cetylpyridinium [Cepacol] Med 04/19/16 15:48 Active 1 each PO PRN PRN Morphine Sulfate Med 04/19/16 15:48 Active 1 - 6 mg IV Q1H PRN Morphine Sulfate Med 04/19/16 15:56 Active 1 - 6 mg IV Q1H PRN Morphine Sulfate Med 04/19/16 15:56 Active 1 - 6 mg IV Q1H PRN Multivitamins [Mvi-12] 10 ml Med 04/19/16 18:30 Active Folic Acid 2 mg Magnesium Sulfate 1 G/2 ml [Magnesium Sulfate] 2 g Thiamine HCl 100 mg Sodium Chloride 0.9% 1,000 ml IV Q24H Oxycodone HCl [Roxicodone] Med 04/19/16 15:48 Active 5 - 10 mg PO Q4H PRN Pantoprazole Sodium [Protonix] Med 04/19/16 17:45 Active 40 mg IV Q12H Sodium Chloride 0.9% Flush [Normal Saline 10ml Flush] Med 04/19/16 15:48 Active 10 - 50 ml IV PRN PRN Intake and Output 04/20/16 04/21/16 04/22/16 06:59 06:59 06:59 Intake Total 3076 6262 Output Total 1260 1970 550 Balance 1816 4292 -550 Tubes and Drains Output ALVIN #1 40 ALVIN #1 20 General: Alert, Oriented x3 Abdomen: Soft, Mild Distention Wound: Well Approximated, No Drainage, No Erythema - Assessment/ Plan (1) Cholelithiasis and acute cholecystitis with obstruction Status: Acute Assessment/ Plan: Floor status. Presumptive E-coli from the gallbladder. On Zosyn. Diet as tolerated. (2) Respiratory distress following surgery Status: Acute Assessment/ Plan: Possible aspiration pneumonia on antibiotics per hospitalists. (3) Cirrhosis Status: Acute Assessment/ Plan: Liver biopsy pending. Hepatitis negative. LFTs stable. (4) Alcohol dependence Status: Chronic Assessment/ Plan: [facility] protocol.
[2016-04-21] MEDS ORDERED: SODIUM CHLORIDE 0.9% 100 ML IV ONE (17:02)
[2016-04-21] MEDS ORDERED: PUMP TUBING ONE (17:02)
[2016-04-21] MEDS: MULTIVITAMINS 10 ML, FOLIC ACID 2 MG, MAGNESIUM SULFATE 1 G/2 ML 2 G, THIAMINE HCL 100 ... IV SCH ×10 (17:14→20:45)
--- NOTE | 2016-04-21 19:19 | PDOC43 ---
- Subjective Chief Complaint: Respiratory distress post surgery Feeling well today. Minimal abd pain improved. No BM. Tolerating po. Subjective: Reports Pain Tolerable, Reports Tolerating Diet Well, Reports Adequate Oral Intake, Reports Flatus, Denies Bowel Movement, Denies Shortness of Breath, Denies Cough, Denies Chest Pain, Denies Abdominal Pain, Denies Nausea , Denies Vomiting, Denies Fever, Denies Chills - Objective Vital Signs Temperature 97.8 F 04/21/16 06:56 Pulse Rate 88 04/21/16 06:56 Respiratory Rate 14 04/21/16 15:00 Blood Pressure 117/80 04/21/16 15:00 O2 Saturation by Pulse Oximetry 91 04/21/16 15:00 Oxygen Delivery Method Room Air Oxygen Flow Rate 0 Intake and Output 04/20/16 04/21/16 04/22/16 06:59 06:59 06:59 Intake Total 3076 6262 1300 Output Total 1260 1970 1450 Balance 1816 4292 -150 Tubes/Drains Output: Tubes and Drains Output ALVIN #1 40 General: Alert, Oriented x3, Cooperative, No Acute Distress HEENT: Atraumatic Lungs: Clear to Auscultation Bilaterally Cardiovascular: Regular Rate and Rhythm Abdomen: Soft, Tenderness (minimal diffuse.), Normal Bowel Sounds, Mild Distention Extremities: Normal Pulses, No Tenderness Laboratory 04/21/16 05:10 04/21/16 05:10 04/21/16 05:10 RBC 4.42 L MCV 100.0 H MCH 33.5 H PT 16.7 H Anion Gap 7 L Estimated GFR 119 H Calcium 7.9 L Total Bilirubin 2.6 H AST 104 H ALT 53 H Alkaline Phosphatase 134 H Total Protein 6.0 L Albumin 2.6 L Albumin/Globulin Ratio 0.8 L % Immature Granulocyt 1.2 H Current Medications: Current meds reviewed in EMR. - Problems: Assessment/Plan (1) Cholangitis Status: Acute Assessment/Plan: Cholecystostomy tube placed 04/19, management per Dr. Garcia. (2) Hepatitis Status: Acute Assessment/Plan: Appears to have alcoholic cirrhosis with varices and possible other acute/ chronic liver disease. INR elevated, liver enzymes and bilirubin elevated, albumin low. Liver biopsy result pending, viral hepatitis panel pending. (3) Respiratory distress following surgery Status: Acute Assessment/Plan: Presumed aspiration pneumonia. Improved today. Decreased O2 requirement. Continue Zosyn/Levofloxacin/clindamycin. Continue nebs and pulmonary toilet. (4) Alcohol dependence Status: Chronic Assessment/Plan: Resulting in chronic liver disease. Family reports no EtOH intake for > one week, continue CIWA protocol. No evidence of withdrawal since admit. (5) GERD (gastroesophageal reflux disease) Qualifiers: Esophagitis presence: esophagitis presence not specified Qualifier Code : (K21.9) Gastro-esophageal reflux disease without esophagitis Status: Chronic Assessment/Plan: Continue pantoprazole. (6) TBI (traumatic brain injury) Qualifiers: Encounter type: sequela Status: Chronic Assessment/Plan: Complicates social interaction and patient understanding of his conditions. VTE Prophylaxis: mechanical with IPC. Partially auto-anticoagulated from liver disease and may need more surgery.
[2016-04-22] MEDS: PIPERACILLIN-TAZO PREMIX BAG 3.375 G in Premix (D5W) 50 ml 1 EACH IV SCH ×3 (01:18→14:18)
[2016-04-22] MEDS: OXYCODONE HCL 5 MG TABLET PO PRN ×5 (01:25→14:17)
[2016-04-22] MEDS ORDERED: PUMP TUBING ONE (04:09)
[2016-04-22] MEDS ORDERED: SODIUM CHLORIDE 0.9% 100 ML IV ONE (04:09)
[2016-04-22] MEDS: CLINDAMYCIN 600 MG PREMIX 600 MG in Premix (D5W) 50 ml 1 EACH IV SCH ×2 (04:22→12:23)
[2016-04-22] MEDS ORDERED: SODIUM CHLORIDE 0.9% 100 ML BAG IV SCH (04:30)
[2016-04-22] MEDS: PANTOPRAZOLE SODIUM 40 MG VIAL IV SCH (04:48)
[2016-04-22 06:02] LABS: HEMATOCRIT 44.5 % (32.0-52.0); HEMOGLOBIN 14.9 gm/l (14.0-18.0); MEAN CELL VOLUME 98.5 fl (80.0-94.0); MEAN CORPUSCULAR HGB CONC 33.5 g/dl (33.0-37.0); RED CELL DISTRIBUTION WIDTH 12.8 % (11.5-14.5)
[2016-04-22 06:36] LABS: ALB/GLOB RATIO 0.7 (>1.0); ALBUMIN 2.6 gm/dL (3.5-5.7); CALCIUM 7.8 mg/dL (8.6-10.3)
[2016-04-22] MEDS ORDERED: POLYETHYLENE GLYCOL 3350 17 G POWD.SUSP PO PRN (11:39)
[2016-04-22] MEDS ORDERED: DOCUSATE SODIUM 100 MG CAPSULE PO SCH (11:45)
--- NOTE | 2016-04-22 11:54 | PDOC43 ---
- Subjective Chief Complaint: Respiratory distress post surgery Doing well. No new c/o's. No BM. Subjective: Reports Pain Tolerable, Reports Tolerating Diet Well, Reports Adequate Oral Intake, Denies Bowel Movement, Denies Shortness of Breath, Denies Cough, Denies Chest Pain, Denies Abdominal Pain, Denies Nausea, Denies Vomiting , Denies Fever, Denies Chills - Objective Vital Signs Temperature 97.9 F 04/22/16 07:14 Pulse Rate 92 04/22/16 07:14 Respiratory Rate 18 04/22/16 07:14 Blood Pressure 125/77 04/22/16 07:14 O2 Saturation by Pulse Oximetry 93 04/22/16 07:14 Oxygen Delivery Method Room Air Oxygen Flow Rate 0 Intake and Output 04/21/16 04/22/16 04/23/16 06:59 06:59 06:59 Intake Total 6262 3850 Output Total 1970 3150 Balance 4292 700 Tubes/Drains Output: Tubes and Drains Output ALVIN #1 75 General: Alert, Oriented x3, Cooperative, No Acute Distress HEENT: Atraumatic Lungs: Clear to Auscultation Bilaterally Cardiovascular: Regular Rate and Rhythm Abdomen: Soft, Tenderness (Minimal diffuse.), Normal Bowel Sounds, Mild Distention, Other (Surgical sites C/D/I.) Extremities: Normal Pulses, No Edema, No Tenderness Laboratory 04/22/16 05:20 04/22/16 05:20 Current Medications: Current meds reviewed in EMR. - Problems: Assessment/Plan (1) Cholangitis Status: Acute Assessment/Plan: Cholecystostomy tube placed 04/19, management per Dr. Garcia. E coli growing- con't Zosyn. (2) Respiratory distress following surgery Status: Acute Assessment/Plan: Presumed aspiration pneumonia. Con't to improve. Continue Zosyn/Levofloxacin/ clindamycin. Continue nebs and pulmonary toilet. (3) Hepatitis Status: Acute Assessment/Plan: Appears to have alcoholic cirrhosis with varices and possible other acute/ chronic liver disease. INR elevated, liver enzymes and bilirubin elevated, albumin low. Liver biopsy result pending. Viral hepatitis panel negative. (4) Alcohol dependence Status: Chronic Assessment/Plan: Resulting in chronic liver disease as above. Family reports no EtOH intake for > one week prior to admit. No evidence of withdrawal since admit. (5) GERD (gastroesophageal reflux disease) Qualifiers: Esophagitis presence: esophagitis presence not specified Qualifier Code : (K21.9) Gastro-esophageal reflux disease without esophagitis Status: Chronic Assessment/Plan: Continue pantoprazole. (6) TBI (traumatic brain injury) Qualifiers: Encounter type: sequela Status: Chronic Assessment/Plan: Complicates social interaction and patient understanding of his conditions. VTE Prophylaxis: mechanical with IPC. Partially auto-anticoagulated from liver disease and may need more surgery. Disposition: Unknown.
[2016-04-22] MEDS: LEVOFLOXACIN 750 MG/D5W 150 ML 750 MG in Premix (D5W) 150 ml Bag 1 EACH IV SCH (12:45)
[2016-04-22 12:59] VITALS: BP 124/87
[2016-04-22] MEDS ORDERED: POTASSIUM CHLORIDE 20 MEQ TAB.PRT.SR PO SCH (14:15)
[2016-04-23] MEDS ORDERED: THIAMINE HCL 100 MG TABLET PO SCH (09:00)
[2016-04-23] MEDS ORDERED: MULTIVITAMINS 1 TAB TABLET PO SCH (09:00)
[2016-04-23] MEDS ORDERED: FOLIC ACID 1 MG TABLET PO SCH (09:00)
--- NOTE | 2016-04-24 11:49 | DS ---
NATHANIEL SANTANA [id number] DATE OF ADMISSION: 04/18/2016 DATE OF DISCHARGE: 04/22/2016 SURGERY SERVICE: Johnny Garcia MD HISTORY OF PRESENT ILLNESS: Nathaniel Santana is a 51-year-old male who presented to the hospital with a 6-day history of right upper quadrant abdominal pain. Her initially was seen in the emergency room 6 days prior and an ultrasound showed no stones, or signs of acute cholecystitis. He went home, but had been unable to eat. Because of persistent pain, he represented to the emergency room and had a CT scan which showed signs of acute cholecystitis and a possible gallstone. General surgery was consulted. PAST MEDICAL HISTORY: 1. Prior traumatic brain injury. 2. History of orthopedic injuries. 3. Chronic alcohol abuse. PAST SURGICAL HISTORY: 1. Umbilical hernia repair with mesh done in [place]. 2. Femur surgery with mian placement. CURRENT MEDICATIONS: None. ALLERGIES: NONE KNOWN. SOCIAL HISTORY: Daily alcohol use. No tobacco use. HOSPITAL COURSE: He was seen by Dr. Shoemaker in consultation who admitted him, and started him on intravenous antibiotics with Zosyn, recommended cholecystectomy. He was noted to have signs on CT scan consistent with cirrhosis. His bilirubin was elevated at 3.4, AST 123, ALT 65, alkaline phosphatase 149. Note was also made of some possible intraabdominal varices. Patient was turned over to the care of Dr. Garcia on 04/19/2016. He was taken to the operating room for laparoscopic cholecystectomy. He was found to have severe cirrhosis with severe acute cholecystitis. He had a recurrent ventral hernia in the abdominal wall with varices and significant bleeding. It was felt that cholecystectomy would be dangerous and it was decided to place a cholecystostomy tube instead. The liver was biopsied. The recurrent ventral hernia was repaired primarily. He was hemodynamically stable during the procedure. He was taken to the recovery room in stable condition. He was taken initially to the floor, but developed some respiratory distress. The Hospitalist service was consulted. It was felt that it was possible that he had possible aspiration pneumonia. He was moved to intermediate care for closer observation. Nebulizer treatments were initiated. Antibiotic coverage was broadened with Levaquin and metronidazole to cover for aspiration pneumonia. CIWA protocol was instituted with daily banana bag supplementation. By the following morning, his respiratory status stabilized. He was started on liquids. He was slowly advanced to a regular diet. He did have some mild signs of anxiety and alcohol withdraw which were treated with benzodiazepines. His Casey-Nye drainage was consistent. He had initial leukocytosis which improved. At the time of discharge, he was eating without nausea. His pain was controlled on oral medications. He was passing gas. His abdomen was soft and nondistended. His cholecystostomy drain was kept in place with 75 mL recorded on the day of discharge. He was discharged to home in stable condition. FINAL DIAGNOSES: 1. Acute cholecystitis with cholelithiasis. 2. Severe alcoholic liver disease with negative viral studies. 3. Respiratory distress after surgery probable aspiration pneumonia. 4. Gastroesophageal reflux disease. 5. Chronic traumatic brain injury. 6. Alcohol dependence. PROCEDURE PERFORMED: Laparoscopic cholecystostomy tube placement, liver biopsy, recurrent ventral hernia repair. INSTRUCTIONS ON DISCHARGE: Drain is to be placed to gravity drainage. He is to take Levaquin 750 daily, clindamycin 300 mg three times a day, oxycodone 5 to 10 mg every 4 hours as needed, ibuprofen 400 mg as needed. He is ok to shower. Not to lift more than 10 pounds for 4 weeks. He is to follow up in the office next week for evaluation of his drain. We will probable leave that in at least a month. JOB #: [id number] MORGAN/sheeba
--- NOTE | 2016-04-28 11:54 | SURGPATH ---
[facility] [address] [place] [id number] Patient Name: NATHANIEL RAMIREZ MR#: [id number] : 1965 Gender: M Specimen #: [id number] Collected: 04/19/2016 Received: 04/23/2016 Reported: 04/28/2016 Submitting Phys: JESSI MARINA Copy To Phys: [facility] HERMINIA JASSO II Clinical History / Pre-Operative Diagnosis: Cholecystitis Specimen Source / Surgical Procedure Performed: Liver biopsy Interpretation: LIVER, WEDGE BIOPSY: - CIRRHOSIS, SEE COMMENT Comment: This liver wedge biopsy shows cirrhosis. The presence of a moderate amount of inflammation and moderate steatosis suggest the possibility of steatohepatitis with cirrhosis. Correlation with clinical and laboratory findings is necessary. Electronically Signed Out Raul Josue M.D. Gross Description: The specimen is received in formalin labeled with the patient's name and "liver biopsy". The specimen consists of a 1.5 x 1.0 x 0.5 cm portion of willard rubbery tissue consistent with liver tissue. The excisional surface is marked with black ink. The specimen is sectioned and entirely submitted in one cassette. ALAN Vann Microscopic Description: Sections show a wedge biopsy of liver. At low power, there is an obvious nodular configuration with small and large hepatocyte nodules surrounded by chronically inflamed fibrous tissue which includes occasional neutrophils. The fibrosis is confirmed by trichrome stain. The hepatocytes within the nodules show moderate to marked steatosis and evidence of mild hepatocyte damage with feathery degeneration. Iron stain is negative. PAS with diastase stain does not show intracellular material. 1: 60968, 40385, 55127, 25842 K74.60
== END 2016-04-22 16:15 | disposition home or self-care (01) | DRG 420 ==
LOC: ED 14:07 → MS 19:41 → SDC 19:41 → MS 04-19 14:12 → ICU 04-19 17:41 → MS 04-21 14:27
PROVIDERS: ADMIT Surgery; ATTEND Surgery
PROC: 0F9440Z Drainage of Gallbladder with Drainage Device, Percutaneous Endoscopic Approach (ICD-10-PCS; principal; 2016-04-19)
PROC: 0FB24ZX Excision of Left Lobe Liver, Percutaneous Endoscopic Approach, Diagnostic (ICD-10-PCS; 2016-04-19)
PROC: 0WQF4ZZ Repair Abdominal Wall, Percutaneous Endoscopic Approach (ICD-10-PCS; 2016-04-19)
DX: K80.00 Calculus of gallbladder with acute cholecystitis without obstruction (principal); J96.00 Acute respiratory failure, unspecified whether with hypoxia or hypercapnia; B17.9 Acute viral hepatitis, unspecified; F10.20 Alcohol dependence, uncomplicated; K70.10 Alcoholic hepatitis without ascites; K21.9 Gastro-esophageal reflux disease without esophagitis; E66.9 Obesity, unspecified; Z68.30 Body mass index [BMI] 30.0-30.9, adult; Z87.820 Personal history of traumatic brain injury; R16.1 Splenomegaly, not elsewhere classified; K57.90 Diverticulosis of intestine, part unspecified, without perforation or abscess without bleeding; N28.1 Cyst of kidney, acquired; K40.90 Unilateral inguinal hernia, without obstruction or gangrene, not specified as recurrent; I83.90 Asymptomatic varicose veins of unspecified lower extremity

== ENCOUNTER 2016-05-08 10:39 | Emergency (ER) | payer MEDICARE ==
[2016-05-08] MEDS ORDERED: IOPAMIDOL 300 (61%) 30 ML SDV IV ONE (10:40)
--- NOTE | 2016-05-08 12:35 | RAD ---
Exam: Fistulogram COMPARISON: Ultrasound 04/12/[address] 04/18/2016 INDICATION: Percutaneous cholecystostomy tube placed at surgery, which stopped draining 4 days ago and fell out this morning. TECHNIQUE: Patient was initially scheduled for T-tube cholangiogram, however that was inadvertently pulled out by the patient this morning. A 10 [place] Orr catheter was placed in the tract by Dr. Carroll when he presented to the ED. Dr. Carroll stated he could only place the catheter approximately 4 cm beyond the skin surface and was unable to inflate the balloon. A total of 6 mL [id number]-[id number] was injected through the indwelling Orr catheter. Contrast extended approximately 1 cm beyond the end of the catheter. It did not extend into the peritoneal cavity. Additional injection of contrast only extravasated into the subcutaneous tissues. IMPRESSION: The tract of the previous cholecystostomy tube is now blind-ending into the subcutaneous tissues in the right upper quadrant. Findings were discussed with Dr. Carroll at the completion of the exam. Message was left for Dr. Radha Paula at 1159 hours 05/08/2016.
== END 2016-05-08 13:11 | disposition home or self-care (01) ==
LOC: ED 10:39
DX: T85.9XXA Unspecified complication of internal prosthetic device, implant and graft, initial encounter (principal); Y65.8 Other specified misadventures during surgical and medical care; Y73.8 Miscellaneous gastroenterology and urology devices associated with adverse incidents, not elsewhere classified
CPT/HCPCS: 47531; 99283 ×2; Q9967